=== PATIENT | female | born 2000 ===

== ENCOUNTER 2022-08-16 12:18 | Outpatient (CLI) | payer MEDICAID ==
--- NOTE | 2022-08-16 14:28 | XRay Report ---
SINUSES 4 VIEWS INDICATION: COUGH/WHEEZING. COMPARISON: None. IMPRESSION: All paranasal sinuses are clear. No fluid level or opacification. The nasal septum is m idline. CHEST 2 VIEWS INDICATION / CLINICAL INFORMATION: COUGH/WHEEZING. COMPARISON: None available. FINDINGS: SUPPORT DEVICES: None. HEART / MEDIASTINUM: No significant abnormality. LUNGS / PLEURA: No significant pulmonary or pleural abnormality. No pneumothorax. ADDITIONAL FINDINGS: No significant additional findings. IMPRESSION: 1. No acute findings. Signer Name: Shreyas Ariza Jr, MD Signed: 08/16/2022 2:24 PM Workstation Name: [id number]
== END 2022-08-16 12:19 | disposition home or self-care (01) ==
LOC: XRAY 12:18
PROVIDERS: ATTEND Internal Medicine Hematology & Oncology
DX: R05.9 Cough, unspecified (principal); R06.2 Wheezing
CPT/HCPCS: 70220; 71046